=== PATIENT | female | born 1995 | race Caucasian/White ===

== ENCOUNTER 2017-07-24 13:26 | Observation (INO) | payer SELFPAY ==
--- NOTE | 2017-07-24 14:48 | ERNOTE ---
Abdominal HPI - Narrative Date of Service: 07/24/17 - General Chief Complaint: Abdominal Pain Time Seen by Provider: 07/24/17 14:27 Source: patient Exam Limitations: no limitations - Immun/Allergies/Home Medications Immunizatons: IMMUNIZATION HX History of Influenza Vaccine No Hx Pneumococcal Vaccination No Allergies/Adverse Reactions: Allergies No Known Allergies Allergy (Unverified 07/24/17 13:44) Home Medications: HOME MEDICATIONS Levofloxacin [Levaquin] 750 mg PO DAILY #10 tab 07/24/17 [Last Taken Unknown] Naproxen [Naprosyn] 500 mg PO BID PRN #60 tab 07/24/17 [Last Taken Unknown] metroNIDAZOLE [Flagyl] 500 mg PO QID #40 tab 07/24/17 [Last Taken Unknown] - History of Present Illness Narrative: Pt. comes in with c/o RLQ pain for 24 hours. Pt. states that it radiates to the L side and is worsened with movement and palpation and that she is 5 weeks from hospital of healthy female . Pt. denies any NVD, SOB, CP, but does states that she has had a fever for 8 hours today and still has some pink vaginal discharge. Review of Systems - Review of Systems Constitutional: Present: no symptoms reported. Absent: recent illness, fever, chills, weakness, fatigue, malaise EYE: Present: no symptoms reported ENT: Present: no symptoms reported Respiratory: Present: no symptoms reported. Absent: shortness of breath, cough , wheezing Cardiology: Present: no symptoms reported. Absent: chest pain, palpitations, edema Gastrointestinal/Abdominal: Present: abdominal pain - RLQ. Absent: nausea, vomiting, diarrhea Genitourinary: Present: no symptoms reported. Absent: frequency, decreased urinary output Musculoskeletal: Present: no symptoms reported. Absent: back pain, joint pain Skin: Present: no symptoms reported. Absent: rash, change in color Neurological: Present: no symptoms reported. Absent: headache, dizziness/light- headedness, numbness, tingling Endocrine: Present: no symptoms reported All Other Systems: All systems neg except as marked - Patient's Past Medical History Patient History - Medical: No pertinent hx Patient History - Cardiac/Respiratory: No pertinent hx Patient History - Cancer: No Hx of Cancer Patient History - Surgical Procedures: No surgical history Patient History - Other: None - Family History Mother Family History - Cardiac/Respiratory: Hypertension Father Family History - Medical: Other - Social History Living Situations: home Psych History: No pertinent hx Alcohol Use: none Drug Use: none - Immunizations Hx Pneumococcal Vaccination: No History of Influenza Vaccine: No Physical Exam - Physical Exam General Appearance: Present: wd/wn, alert, no apparent distress Head Exam: Present: normal inspection, no evidence of injury Eye Exam: Normal inspection: bilateral, PERRL: bilateral, EOMI: bilateral Ears, Nose, Throat: Present: normal ENT inspection, normal pharynx Neck: Present: normal inspection, nontender Respiratory: Present: no respiratory distress, normal breath sounds, no accessory muscle use, chest nontender, lungs clear Cardiovascular/Chest: Present: regular rate, rhythm, no murmur, normal peripheral pulses Gastrointestinal/Abdominal: Present: normal bowel sounds, nontender, nondistended, soft, no organomegaly ED Progress - Date and Time Seen: Date and Time: 07/24/17 19:[address] Wells and as this is probable appendicitis but not definite we will try outpatient antibiotics first and if it worsens then she should return to the ER 07/24/17 19:35 Reassessed pt. as she is c/o increased pain and her pain is now rebound with referred pain from other areas of abdomen to this area as well. Discussed again with Dr Elam and he now feels that we can admit for observation and he will reassess tomorrow. - Results and Orders Patient's Lab Results:: I have reviewed the patient's lab results. - Vital Signs Patient's Vital Signs:: I have reviewed the patient's vital signs. Vital Signs: Vital Signs 07/24/17 13:38 Temperature 36.9 C Pulse Rate 114 H Respiratory 12 Rate Blood Pressure 136/78 O2 Sat by Pulse 97 Oximetry - X-Ray X-Ray #1 X-Ray: abdomen Interpretation: Reviewed by me X-ray Comments: non obstructive bowel gas pattern - CT/Ultrasound CT/Ultrasound Narrative: ENHANCED CT SCAN OF THE ABDOMEN AND ENHANCED CT SCAN OF THE PELVIS. COMPARISON: NONE Technique: Initially, multiple axial images were obtained through the abdomen during the portal venous phase of enhancement. Delayed images were obtained through the abdomen and pelvis. Coronal reconstructions were obtained. Oral contrast was utilized. The pelvis is rescanned after additional delay to better opacify the cecum and distal small bowel Individualized dose optimization technique was used for the performed procedure including automated exposure control, adjustment of the mA and/or kV according to patient size and/or the iterative reconstruction technique. Findings: The visualized lung bases are clear. The liver is homogeneous in appearance and I do not see evidence for a focal defect or intrahepatic duct dilatation. The right lobe the liver is prominent; hepatomegaly versus Ana's lobe. A gallbladder is in place and I do not see evidence for calcified gallstones. The spleen is of normal size and is homogenous in appearance. The adrenal glands are within normal limits. The pancreas is with in normal limits. The abdominal aorta is of normal caliber. I do not see evidence for retroperitoneal adenopathy on this study. There is a small fat-containing umbilical hernia The right and left renal parenchyma is normal in appearance. The kidneys demonstrate bilateral symmetric excretion of contrast and the ureters are of normal caliber on delayed images. The stomach is partially distended and is grossly normal appearance. The small bowel is of normal caliber. The cecum is located within the anterior right lower pelvis. The appendix is not clearly defined. The colon is suboptimally evaluated, but I'm not convinced of a definable colon lesion. CT scan of pelvis: The urinary bladder is normal in appearance. A normal appearing uterus is identified right and left ovaries are identified and are within normal limits except for a few small follicles. There is some dirtiness/inflammation in the fat involving the posterior right side of the pelvis (series 4 images 62-67). There is a tubular structure within this region (series 5 image 28), which may reflect a dilated appendix, I cannot prove that it connect to the cecum. I'm not convinced of free fluid in the pelvis. IMPRESSION: 1. PROMINENT RIGHT LOBE LIVER; HEPATOMEGALY VERSUS ANA'S LOBE. 2. SMALL FAT-CONTAINING UMBILICAL HERNIA. 3. INFLAMMATION THE FAT INVOLVING THE POSTERIOR RIGHT PELVIS WITH A QUESTIONABLE TUBULAR STRUCTURE IN THIS REGION OF INFLAMMATION. I'M SUSPICIOUS THIS REFLECTS A DILATED INFLAMED APPENDIX, BUT I'M UNABLE TO CONNECT THIS STRUCTURE TO THE CECUM. CLINICAL CORRELATION IS REQUIRED. Electronically signed by Colt Palmer M.D.. - Progress/Reassessment Chief Complaint: Abdominal Pain Progress:: Re-examined Departure Clinical Impression: Abdominal pain Qualifiers: Abdominal location: right lower quadrant Qualified Code(s): R10.31 - Right lower quadrant pain Appendicitis Qualifiers: Appendicitis type: acute appendicitis Acute appendicitis type: with localized peritonitis Qualified Code(s): K35.3 - Acute appendicitis with localized peritonitis - Departure Disposition: [facility] Condition: Fair
[2017-07-24 14:53] LABS: Hematocrit 39.7 % (37.0-47.0); Hemoglobin 13.4 gm/dL (12.5-16.0); Mean Cell Volume 84.6 fl (78-100); Mean Corpuscular Hemoglobin 28.6 pg (27-31); Mean Corpuscular Hgb Conc 33.8 g/dl (32-36); Mean Platelet Volume 10.1 fl (6.0-9.5); Neutrophil # 8.7 K/mm3 (1.3-6.0); Neutrophil % 82.4 % (42-75.0); Platelet Count 259 K/mm3 (150-450); Red Blood Count 4.69 M/mm3 (4.2-5.4); Red Cell Distribution Width 13.4 % (11.5-14.0); White Blood Count 10.6 K/mm3 (4.0-10.5)
[2017-07-24 14:53] LABS: Urine Bilirubin Negative (NEGATIVE); Urine Blood Negative /ul (NEGATIVE); Urine Ketone Negative (NEGATIVE); Urine Nitrite Negative (NEGATIVE); Urine Protein Negative (NEGATIVE); Urine Urobilinogen Normal (NORMAL); Urine pH 5.5 pH (5.0-7.0)
[2017-07-24 14:57] LABS: Urine Appearance Clear; Urine Color Yellow
[2017-07-24 15:01] LABS: Urine Bacteria TRACE; Urine RBC None Seen /hpf (0-5); Urine WBC 0-5 /hpf (0-5)
[2017-07-24 15:04] LABS: Albumin * 3.9 gm/dl (3.4-5.0); Anion Gap 17.5 mmol/L (6.8-13.8); BUN/Creatinine Ratio 15.4 (9.0-21.6); Bilirubin, Total 0.5 mg/dL (0.0-1.1); Ca. Corrected For Albumin 9.8 mg/dL (8.4-10.2); Carbon Dioxide 25.4 mmol/L (24-32.6); Potassium 3.9 mmol/L (3.4-4.6); Total Protein 8.4 gm/dL (6.2-8.2)
[2017-07-24] MEDS ORDERED: DIATRIZOATE MEGLUMINE, SODIUM 30 ML BTL ONE (15:50)
[2017-07-24] MEDS ORDERED: DIATRIZOATE MEGLUMINE, SODIUM 30 ML BTL PO ONE (15:57)
[2017-07-24] MEDS ORDERED: KETOROLAC TROMETHAMINE 30 MG/ML VIAL IV ONE (17:46)
[2017-07-24] MEDS ORDERED: KETOROLAC TROMETHAMINE 30 MG/ML VIAL ONE (17:52)
[2017-07-24] MEDS ORDERED: NORMAL SALINE 1,000 ML IV PRN (20:06)
[2017-07-24] MEDS: CIPROFLOXACIN IN 5 % DEXTROSE 400 MG/200 ML BAG IV SCH (20:32)
[2017-07-24] MEDS: metroNIDAZOLE/SODIUM CHLORIDE 500 MG/100 ML BAG IV SCH (21:38)
[2017-07-24] MEDS ORDERED: ACETAMINOPHEN 325 MG SUPP.RECT RC PRN (22:46)
[2017-07-24] MEDS ORDERED: ONDANSETRON HCL/PF 2 MG/ML VIAL IV PRN (22:47)
[2017-07-24] MEDS ORDERED: MORPHINE SULFATE 4 MG/ML SYRG IV PRN (22:49)
[2017-07-24] MEDS ORDERED: ACETAMINOPHEN 500 MG TABLET PO PRN (22:57)
[2017-07-24] MEDS: RINGER'S SOLUTION,LACTATED 1,000 ML IV PRN (23:08)
[2017-07-24] MEDS: KETOROLAC TROMETHAMINE 30 MG/ML VIAL IV SCH (23:14)
[2017-07-25] MEDS: metroNIDAZOLE/SODIUM CHLORIDE 500 MG/100 ML BAG IV SCH ×2 (03:33→14:57)
[2017-07-25] MEDS: KETOROLAC TROMETHAMINE 30 MG/ML VIAL IV SCH ×2 (05:00→12:26)
[2017-07-25 05:37] LABS: Hematocrit 35.9 % (37.0-47.0); Hemoglobin 11.9 gm/dL (12.5-16.0); Mean Cell Volume 85.9 fl (78-100); Mean Corpuscular Hemoglobin 28.5 pg (27-31); Mean Corpuscular Hgb Conc 33.1 g/dl (32-36); Mean Platelet Volume 10.4 fl (6.0-9.5); Neutrophil # 8.4 K/mm3 (1.3-6.0); Neutrophil % 85.3 % (42-75.0); Platelet Count 223 K/mm3 (150-450); Red Blood Count 4.18 M/mm3 (4.2-5.4); Red Cell Distribution Width 14.1 % (11.5-14.0); White Blood Count 9.8 K/mm3 (4.0-10.5)
[2017-07-25] MEDS: RINGER'S SOLUTION,LACTATED 1,000 ML IV PRN ×2 (07:12→15:15)
[2017-07-25] MEDS: CIPROFLOXACIN IN 5 % DEXTROSE 400 MG/200 ML BAG IV SCH (07:13)
[2017-07-25] MEDS ORDERED: MORPHINE SULFATE 2 MG/ML DISP.SYRIN IV PRN (07:14)
--- NOTE | 2017-07-25 11:43 | HP ---
Chief Complaint - Chief Complaint Date of Service: 07/25/17 Time of Service: 11:25 Chief Complaint: Lower abdominal pain History of Present Illness: 21 year old 5 week post- white female who presented to the ER last night. Had abdominal pain start in the lower abdomen on . It progressed in severity on Thursday and then became associated with fevers and chills. She is having some diarrhea as well. She is . She had a mildly elevated white blood count and an equivocal CT that showed a tubular structure in the pelvis with some fat smudging but it could not be linked to the cecum. Overnight her pain remains unabated. Her WBC has normalized but her hemoglobin has dropped a couple points. - Patient's Past Medical History Patient History - Medical: No pertinent hx Patient History - Cardiac/Respiratory: No pertinent hx Patient History - Cancer: No Hx of Cancer Patient History - Surgical Procedures: No surgical history Patient History - Other: None LMP (females 10-50): 5 wk - Family History Mother Family History - Cardiac/Respiratory: Hypertension Father Family History - Medical: Other - Social History Living Situations: home Psych History: No pertinent hx Smoking Status: Never smoker Have you smoked in the past 12 months: No Do you dip or chew tobacco: No Patient requests Smoking Cessation Consult: No Initiate information on Smoking Cessation: No Alcohol Use: none Drug Use: none - Immunizations Hx Pneumococcal Vaccination: No History of Influenza Vaccine: No Review Of Systems (GEN) - Review of Systems Abdominal: Present: Abdominal Pain, Diarrhea Misc: All systems neg except as marked Immunizations: IMMUNIZATION HX History of Influenza Vaccine No Hx Pneumococcal Vaccination No Allergies/Adverse Reactions: Allergies Allergy/AdvReac Type Severity Reaction Status Date / Time No Known Allergies Allergy Unverified 07/24/17 13:44 Home Medications: HOME MEDICATIONS Levofloxacin [Levaquin] 750 mg PO DAILY #10 tab 07/24/17 [Last Taken Unknown] Naproxen [Naprosyn] 500 mg PO BID PRN #60 tab 07/24/17 [Last Taken Unknown] metroNIDAZOLE [Flagyl] 500 mg PO QID #40 tab 07/24/17 [Last Taken Unknown] Exam - Exam Vital Signs: Vital Signs - Last Taken Temp 37.2 C 07/25/17 10:16 Pulse 100 07/25/17 10:16 Resp 18 07/25/17 10:16 BP 118/69 10/21/17 10:16 Pulse Ox 100 07/25/17 10:16 Constitutional: Present: Alert, Oriented x3, Cooperative, Well developed, Well nourished, No distress, Overweight ENT Exam: Present: normal ENT inspection, hearing grossly normal Eye Exam: bilateral eye: normal inspection Neck: Present: full range of motion, normal inspection, trachea midline Respiratory: Present: lungs clear, normal breath sounds, no respiratory distress , no accessory muscle use Cardiovascular/Chest: Present: regular rate, rhythm, no murmur Abdomen: Present: tender - all four quadrants. pt is stoic., other - Reducible large umbilical hernia. Tender to palpation. Extremity: Present: normal inspection, other - RUE in warm packs due to blown IV Skin Exam: Present: normal color, warm/dry Neurologic: Present: no motor/sensory deficits Appearance: Present: appropriate appearance, appropriate insight Eye contact: Present: cooperative, good eye contact Thoughts: Present: normal thought pattern Diagnostic Studies: Abnormal Lab Results 07/25/17 Range/Units 05:35 RBC 4.18 L (4.2-5.4) M/mm3 Hgb 11.9 L (12.5-16.0) gm/dL Hct 35.9 L (37.0-47.0) % RDW 14.1 H (11.5-14.0) % MPV 10.4 H (6.0-9.5) fl Neutrophils % 85.3 H (42-75.0) % Lymphocytes % 7.9 L (20-51) % Neutrophils # 8.4 H (1.3-6.0) K/mm3 Lymphocytes # 0.8 L (1.5-3.5) k/mm3 Laboratory Results WBC 9.8 K/mm3 (4.0-10.5) 07/25/17 05:35 RBC 4.18 M/mm3 (4.2-5.4) L 07/25/17 05:35 Hgb 11.9 gm/dL (12.5-16.0) L 07/25/17 05:35 Hct 35.9 % (37.0-47.0) L 07/25/17 05:35 MCV 85.9 fl (78-100) 07/25/17 05:35 MCH 28.5 pg (27-31) 07/25/17 05:35 MCHC 33.1 g/dl (32-36) 07/25/17 05:35 RDW 14.1 % (11.5-14.0) H 07/25/17 05:35 Plt Count 223 K/mm3 (150-450) 07/25/17 05:35 MPV 10.4 fl (6.0-9.5) H 07/25/17 05:35 Immature Gran % (Auto) 0.30 % (0.001-0.429) 07/25/17 05:35 Immature Gran # (Auto) 0.03 K/mm3 (0.000-0.0310) 07/25/17 05:35 Neutrophils % 85.3 % (42-75.0) H 07/25/17 05:35 Lymphocytes % 7.9 % (20-51) L 07/25/17 05:35 Monocytes % 6.4 % (0.0-9) 07/25/17 05:35 Eosinophils % 0.0 % (0.0-3.0) 07/25/17 05:35 Basophils % 0.1 % (0.0-1.0) 07/25/17 05:35 Nucleated RBC % 0.0 k/mm3 (0-1) 07/25/17 05:35 Neutrophils # 8.4 K/mm3 (1.3-6.0) H 07/25/17 05:35 Lymphocytes # 0.8 k/mm3 (1.5-3.5) L 07/25/17 05:35 Monocytes # 0.6 k/mm3 (0.0-1.0) 07/25/17 05:35 Eosinophils # 0.0 k/mm3 (0.0-0.7) 07/25/17 05:35 Absolute Basophils 0.0 k/mm3 (0.0-0.1) 07/25/17 05:35 Sodium 137 mmol/L (132-142) 07/24/17 14:44 Plasma Sodium 137 mmol/L (130-142) 07/24/17 14:44 Potassium 3.9 mmol/L (3.4-4.6) 07/24/17 14:44 Chloride 98 mmol/L (97-106) 07/24/17 14:44 Carbon Dioxide 25.4 mmol/L (24-32.6) 07/24/17 14:44 Anion Gap 17.5 mmol/L (6.8-13.8) H 07/24/17 14:44 BUN 14 mg/dL (3-23) 07/24/17 14:44 Creatinine 0.91 mg/dL (0.4-1.4) 07/24/17 14:44 Est GFR (Non-Af Amer) 81 mL/min (60-130) 07/24/17 14:44 BUN/Creatinine Ratio 15.4 (9.0-21.6) 07/24/17 14:44 Random Glucose 114 mg/dL (70-110) H 07/24/17 14:44 Calcium 10.0 mg/dL (7.9-10.9) 07/24/17 14:44 Calcium Adj for Albumin 9.8 mg/dL (8.4-10.2) 07/24/17 14:44 Total Bilirubin 0.5 mg/dL (0.0-1.1) 07/24/17 14:44 AST 13 U/L (0-48) 07/24/17 14:44 ALT 32 U/L (19-67) 07/24/17 14:44 Alkaline Phosphatase 97 U/L (50-170) 07/24/17 14:44 Total Protein 8.4 gm/dL (6.2-8.2) H 07/24/17 14:44 Albumin 3.9 gm/dl (3.4-5.0) 07/24/17 14:44 Amylase 42 U/L (25-115) 07/24/17 14:44 Lipase 94 U/L (73-393) 07/24/17 14:44 Urine Color Yellow 07/24/17 14:43 Urine Appearance Clear 07/24/17 14:43 Urine pH 5.5 pH (5.0-7.0) 07/24/17 14:43 Ur Specific [place] 1.010 SP.GR. (1.005-1.010) 07/24/17 14:43 Urine Protein Negative mg/dL (NEGATIVE) 07/24/17 14:43 Urine Glucose (UA) Negative mg/dL (NEGATIVE) 07/24/17 14:43 Urine Ketones Negative mg/dL (NEGATIVE) 07/24/17 14:43 Urine Blood Negative /ul (NEGATIVE) 07/24/17 14:43 Urine Nitrate Negative (NEGATIVE) 07/24/17 14:43 Urine Bilirubin Negative mg/dl (NEGATIVE) 07/24/17 14:43 Urine Urobilinogen Normal EU/dl (NORMAL) 07/24/17 14:43 Ur Leukocyte Esterase 25 /ul (NEGATIVE) H 07/24/17 14:43 Urine RBC None seen /hpf (0-5) 07/24/17 14:43 Urine WBC 0-5 /hpf (0-5) 07/24/17 14:43 Ur Epithelial Cells None seen /hpf (0-5) 07/24/17 14:43 Urine Bacteria Trace (NONE) 07/24/17 14:43 Urine Culture Comments Culture to follow 07/24/17 14:43 Urine HCG, Qual Negative (NEGATIVE) 07/24/17 14:43 Assessment/Plan - Narrative Narrative: A: Lower abdominal pain. Uncertain etiology. Possible appendicitis. P: She is tender throughout entire abdomen. Probably too early with breast feeding for a hemorrhagic cyst. Tubular pelvic structure with fat smudging of uncertain origin. WBC has normalized yet her physical exam is concerning. I recommend a diagnostic laparoscopy and repair of her umbilical hernia, possible appendectomy. The options, risks, and benefits were reviewed fully. She seems to understand, asks appropriate questions, and desires to proceed. - Assessment/Plan (1) Abdominal pain Problem: Acute Qualifiers: Abdominal location: lower abdomen, unspecified Qualified Code(s): R10.30 - Lower abdominal pain, unspecified
[2017-07-25] MEDS ORDERED: LEVOFLOXACIN/D5W 750 MG/150 ML BAG IV ONE (11:44)
[2017-07-25] MEDS ORDERED: RINGER'S SOLUTION,LACTATED 1,000 ML IV ONE ×3 (12:45→14:00)
[2017-07-25] MEDS ORDERED: BUPIVACAINE HCL 50 ML VIAL IJ ONE ×2 (13:05)
--- NOTE | 2017-07-25 14:36 | OR ---
Operative Report - Dictated Report Narrative: Date: 07/25/2017 Preop dx: Lower abdominal pain, umbilical hernia. Postop dx: Acute appendicitis, non-perforated Procedure: Diagnostic laparoscopy, laparoscopic appendectomy, primary repair umbilical hernia. Staff surgeon: Esdras Bazan MD Anesthesia: GETA EBL: Minimal Specimen: Appendix Description: The pt was placed in the supine position and underwent the smooth inductio of GETA. A robb catheter was inserted and SCD boots applied. The abdomen was prepped and draped in a sterile fashion. A port sites were anesthetized with marcaine prior to incision. A supraumbilical incision was carried out and the umbilical hernia sac was isolated and opened and excised at the level of the fascial rim. 0-Vicryl stay sutures were placed on either side of midline and a subramanian cannula was inserted. The abdomen was insufflated to a pressure of 15mmHg with carbon dioxide. Inspection revealed green fluid in the pelvis. A suprapubic 5mm and LLQ 5mm port were inserted under direct vision. The pelvis fluid was evacuated. The cecum was grasped and the course of the appendix went down into the deep pelvis. It was easily from surrounding structures with blunt dissection. Once free from the pelvis it appeared to be involved with appendicits in the distal aspect without perforation. The ileal fold of Treves was adherent to the mesoappendix and was easily dissected free with blunt dissection. The mesoappendix was taken down in continuity with a Thunderbeat. The appendix was transected at its base with an endoGIA. The appendix was placed in an endocatch bag and deliver out through the umbilical port site. Pneumoperitoneum was reestablished and inspection carried out. Hemostasis appeared to be adequate. The pneumoperitoneum was evacuated and the ports removed. The umbilical hernia defect was closed with interrupted figure of eight 0-Vicryl suture. The incisions were closed with subcuticular stitches of 4-0 Vicryl and sealed with dermabond. The robb was removed. The patient was discharged from the OR in stable condition without apparent complications.
--- NOTE | 2017-07-25 14:48 | DS ---
(1) Abdominal pain Problem: Resolved Qualifiers: Abdominal location: lower abdomen, unspecified Qualified Code(s): R10.30 - Lower abdominal pain, unspecified (2) Appendicitis Problem: Resolved Qualifiers: Appendicitis type: acute appendicitis Acute appendicitis type: with generalized peritonitis Qualified Code(s): K35.2 - Acute appendicitis with generalized peritonitis Description of Stay: Pt presented with c/o of band-like lower abdominal pain since . She had a mildly elevated white blood count and an equivocal CT. She was admitted for observation with no clinical improvement other than a normalization of her white count. She was taken to the OR for a diagnostic laparoscopy and was found to have acute appendicitis. A laparoscopic appendectomy was performed and an umbilical hernia was repaired. She tolerated the procedure well without apparent complications and postop convalescence was unremarkable upon discharge. She is sent with scripts for Levaquin 750 daily and flagyl 500 TID for seven days. She was given scripts for [place]/Motrin prn pain. Procedures Performed: see notes below List Procedures: Laparoscopic appendectomy. Primary repair umbilical hernia. Discharge Disposition: Home self care Disposition: Home self-care Condition: Fair Discharge Activity: No Lifting Discharge Diet: General/regular food Additional Patient Instructions (free text): Avoid lifting greater than 20 lb for six weeks. May shower. Diet as tolerated. Do not remove glue. Let it wear off. Complete Home Medications List: Complete Home Medication List: Levofloxacin [Levaquin] 750 mg PO DAILY #10 tab 07/24/17 Naproxen [Naprosyn] 500 mg PO BID PRN #60 tab 07/24/17 metroNIDAZOLE [Flagyl] 500 mg PO QID #40 tab 07/24/17
[2017-07-25] MEDS ORDERED: metroNIDAZOLE/SODIUM CHLORIDE 500 MG/100 ML BAG IV SCH (15:00)
[2017-07-25 18:04] VITALS: BP 117/60
== END 2017-07-25 18:05 | disposition home or self-care (01) ==
LOC: EDBD → ER 13:26 → MS 19:47
PROVIDERS: ADMIT Specialist; ATTEND Specialist
PROC: 0WQF0ZZ Repair Abdominal Wall, Open Approach (ICD-10-PCS; 2017-07-25)
PROC: 0DTJ4ZZ Resection of Appendix, Percutaneous Endoscopic Approach (ICD-10-PCS; principal; 2017-07-25 13:00)
DX: K35.3 Acute appendicitis with localized peritonitis (principal); K42.9 Umbilical hernia without obstruction or gangrene; O99.63 Diseases of the digestive system complicating the puerperium
CPT/HCPCS: 36415; 44970; 49585; 74020; 74177; 80053; 81001; 82150; 83690; 84703; 85025; 87086; 88304; 93005; 96365; 96366; 96367; 96374; 96376; 99285; G0378